=== PATIENT | female | born 1940 | race Asian ===

== ENCOUNTER 2020-06-26 10:17 | Emergency (ER) | payer MEDICARE, BC ==
[~2020-06-26] VITALS: Ht 162.6 cm; Wt 65.8 kg
--- NOTE | 2020-06-26 10:46 | NUR ---
PD OFFICER CATE GARCIAEd WARD #[id number] AT BEDSIDE FOR INTERVIEW
[2020-06-26] MEDS ORDERED: TDAP [DIPH/PERTUSSIS/TET] 0.5 ML VIAL IM ONE ×2 (10:56→11:00)
[2020-06-26] MEDS ORDERED: BACI/NEOM/POLY B OINT PKT 1 UDPKT PACKET TP ONE (11:30)
--- NOTE | 2020-06-26 11:42 | NUR ---
Patient a/ox4, ambulatory with steady gait, pain tolerable on right hand at this time. Patient discharged to home in stable condition. Written and verbal after care instructions given. Patient verbalizes understanding of instruction.
[2020-06-26 11:44] VITALS: BP 161/72
== END 2020-06-26 11:44 | disposition home or self-care (01) ==
LOC: ER 10:23
DX: S20.211A Contusion of right front wall of thorax, initial encounter (principal); S60.221A Contusion of right hand, initial encounter; I10 Essential (primary) hypertension; Z60.2 Problems related to living alone; V49.49XA Driver injured in collision with other motor vehicles in traffic accident, initial encounter; Y93.89 Activity, other specified; Y92.488 Other paved roadways as the place of occurrence of the external cause; Y99.8 Other external cause status
CPT/HCPCS: 71045-TC; 73130-TC; 90715